=== PATIENT | female | born 1980 ===

== ENCOUNTER 2019-01-16 13:13 | Outpatient (CLI) | payer MEDICAID ==
--- NOTE | 2019-01-16 14:39 | MMO ---
Bilateral MAMMO Bilat Diag [facility]I. CLINICAL HISTORY: Patient is 38 years old and is seen for diagnostic exam and pain in the outer region of both breasts. The patient has no family history of breast cancer. The patient has no personal history of cancer. VIEWS: The views performed were: bilateral craniocaudal with tomosynthesis; bilateral mediolateral oblique with tomosynthesis; and bilateral mediolateral with tomosynthesis. FILMS COMPARED: The present examination has been compared to a prior imaging study performed at [facility] on 01/16/2019. MAMMOGRAM FINDINGS: There are scattered fibroglandular densities. Benign calcifications are noted bilaterally. US shows lymph nodes on the right. There are no suspicious masses, suspicious calcifications, or new areas of architectural distortion. IMPRESSION: THERE IS NO MAMMOGRAPHIC EVIDENCE OF MALIGNANCY. A ROUTINE FOLLOW-UP MAMMOGRAM IN 1 YEAR IS RECOMMENDED. THE RESULTS OF THIS EXAM WERE SENT TO THE PATIENT. ACR BI-RADS Category 2 - Benign finding MAMMOGRAPHY NOTE: 1. A negative mammogram report should not delay a biopsy if a dominant of clinically suspicious mass is present. 2. Approximately 10% to 15% of breast cancers are not detected by mammography. 3. Adenosis and dense breasts may obscure an underlying neoplasm. Reported by: ABEL WARD MD Electonically Signed: [id number]
--- NOTE | 2019-01-16 14:57 | ULT ---
BILATERAL BREAST ULTRASOUND: HISTORY: Pain in the breasts bilaterally. FINDINGS: Correlation is made with mammogram of the same date. Sonographic evaluation of the region of pain is performed bilaterally. There is an 8 x 7 x 11 mm hypoechoic nonshadowing well circumscribed nodule with echogenic hilum demo nstrating flow at the 10 o'clock position of the right breast and a similar 5 mm nodule in the right axilla consistent with lymph nodes. Sonographic evaluation at the 2 o'clock position of the left breast (site of pain) shows no abnormali ty. IMPRESSION: BIRADS category 2 - benign findings. Return to annual mammographic screening. POS: OFF
== END 2019-01-16 13:14 | disposition home or self-care (01) ==
LOC: BICMAMMO 13:13
PROVIDERS: ATTEND Advanced Practice Midwife
DX: N64.4 Mastodynia (principal)
CPT/HCPCS: 77066; G0279